=== PATIENT | male | born 1970 | race Caucasian/White ===

== ENCOUNTER 2017-11-30 11:38 | Inpatient (IN) | payer OTHER ==
[~2017-11-30] VITALS: Ht 193 cm; Wt 145.1 kg
[~2017-11-30 11:38] MED LIST: BENAZEPRIL PO; CARVEDILOL PO; HUMALOG SQ; LANTUS SQ; LIPITOR PO; aspirin PO; prozac PO
[2017-11-30] MEDS ORDERED: ACETAMINOPHEN 325 MG TAB PO STA (12:09)
[2017-11-30 12:21] LABS: BASOPHILS # (AUTO) 0.1 (0.0-0.1); BASOPHILS % 0.6 % (0.0-1.0); EOSINOPHILS # (AUTO) 0.1 (0.0-0.4); EOSINOPHILS % 0.8 % (0.0-6.0); HEMATOCRIT 41.9 % (38.2-49.6); HEMOGLOBIN 14.5 g/dL (14.0-18.0); LYMPHOCYTES # (AUTO) 0.8 (1.0-3.2); LYMPHOCYTES % 6.3 % (18.0-39.1); MEAN CORPUSCULAR HEMOGLOBIN 30.9 pg (28-32); MEAN CORPUSCULAR HGB CONC 34.6 g/dL (31-35); MEAN CORPUSCULAR VOLUME 89.1 fL (81-99); MONOCYTES # (AUTO) 0.9 (0.2-0.8); MONOCYTES % 6.7 % (4.4-11.3); NEUTROPHILS # (AUTO) 11.2 (2.1-6.9); NEUTROPHILS % 85.1 % (38.7-80.0); PLATELET COUNT 218 x10e3/uL (140-360); RED CELL DISTRIBUTION WIDTH 12.1 % (11.7-14.4)
[2017-11-30] MEDS ORDERED: HYDROMORPHONE 2MG/ML INJ IV ONE (12:30)
[2017-11-30] MEDS ORDERED: VANCOMYCIN 1GM/NS 250 ML 250 ML IV STA (12:30)
[2017-11-30] MEDS ORDERED: METOCLOPRAMIDE HCL 10 MG/2ML VIAL IV ONE (12:30)
[2017-11-30] MEDS ORDERED: SODIUM CHLORIDE 0.9% 1000ML 1,000 ML IV STA (12:30)
[2017-11-30] MEDS ORDERED: KETOROLAC TROMETHAMINE 30 MG/ML VIAL IM STA (12:30)
[2017-11-30 12:45] LABS: ALANINE AMINOTRANSFERASE 76 IU/L (0-55); ALBUMIN 4.4 g/dL (3.5-5.0); ALBUMIN/GLOBULIN RATIO 1.5 (0.8-2.0); ALKALINE PHOSPHATASE 63 IU/L (40-150); ANION GAP 13.9 mmol/L (8-16); BLOOD UREA NITROGEN 14 mg/dL (7-26); BUN/CREATININE RATIO 15 (6-25); CALCIUM 9.5 mg/dL (8.4-10.2); CARBON DIOXIDE 28 mmol/L (22-29); CHLORIDE 98 mmol/L (98-107); CREATININE, SERUM 0.95 mg/dL (0.72-1.25); EST GLOMERULAR FILTRATION RATE > 60 ML/MIN (60-); GLUCOSE 156 mg/dL (74-118); POTASSIUM 3.9 mmol/L (3.5-5.1); SODIUM 136 mmol/L (136-145)
[2017-11-30 13:03] LABS: INR 0.99; PROTHROMBIN TIME 12.3 seconds (11.9-14.5)
[2017-11-30 13:04] LABS: PARTIAL THROMBOPLASTIN TIME 27.8 seconds (23.8-35.5)
[2017-11-30] MEDS ORDERED: CLINDAMYCIN 600MG/D5W 50ML 50 ML IV SCH ×2 (13:45)
[2017-11-30] MEDS ORDERED: MORPHINE SULFATE 2 MG/ML SYR IV ONE (14:00)
--- NOTE | 2017-11-30 14:05 | Diagnostic Imaging Report ---
PROCEDURE: CHEST SINGLE (PORTABLE) COMPARISON: None. INDICATIONS: LEG INFECTION, CXR FOR ADMISSION FINDINGS: Limited examination secondary to patient body habitus. Lungs are well-expanded and without gross consolidation, pleural effusion, or pneumothorax. Cardiomediastinal contour and pulmonary vasculature are within normal limits for portable, AP technique. No acute osseous abnormality. CONCLUSION: No acute cardiopulmonary abnormality. Dictated by: Titus Barth M.D. on 11/30/2017 at 14:08 Electronically approved by: Titus Barth M.D. on 11/30/2017 at 14:08
[2017-11-30] MEDS ORDERED: HYDROMORPHONE 2MG/ML INJ IV PRN (15:30)
[2017-11-30] MEDS ORDERED: HYDROMORPHONE 1MG/1ML INJ IV PRN (15:30)
[2017-11-30] MEDS ORDERED: ONDANSETRON HCL INJ 2 MG/ML VIAL IV PRN (15:30)
--- OUTSIDE RECORDS SUMMARY | 2017-11-30 16:03 | XMS REPORT ---
Author Author [facility] Address Unknown Phone Unavailable Care Team Providers Care Clerical Secretary Name Role Phone MEG TARANGO Unavailable Unavailable Problems This patient has no known problems. Allergies, Adverse Reactions, Alerts This patient has no known allergies or adverse reactions. Medications This patient has no known medications. Results Test Description Test Time Test Comments Text Results Atomic Results Result Comments CHEST SINGLE (PORTABLE) [place] [id number] Patient Name: ESTHELA ESTEVEZ MR #: [id number] : 1970 Age/Sex: 47/M Req #: [id number] Adm Physician: Ordered by: MEG TARANGO MD Report #: [id number] Location: ER Room/Bed: Procedure: [id number] DX/CHEST SINGLE (PORTABLE) Exam Date: 11/30/17 Exam Time: 1310 REPORT STATUS: Signed PROCEDURE: CHEST SINGLE (PORTABLE) COMPARISON: None. INDICATIONS: LEG INFECTION, CXR FOR ADMISSION FINDINGS: Limited examination secondary to patient body habitus. Lungs are well-expanded and without gross consolidation, pleural effusion, or pneumothorax. Cardiomediastinal contour and pulmonary vasculature are within normal limits for portable, AP technique. No acute osseous abnormality. CONCLUSION: No acute cardiopulmonary abnormality. Dictated by: Margaux Barth M.D. on 11/30/2017 at 14:08 Electronically approved by: Margaux Barth M.D. on 11/30/2017 at 14:08 Dictated By: MARGAUX BARTH MD [id number] Transcribed By: CIERRA on 11/30/17 1408 COPY TO: MEG TARANGO MD
[2017-11-30] MEDS: LEVOFLOXACIN 750MG/D5W 150ML 150 ML IV SCH (16:21)
[2017-11-30] MEDS: SODIUM CHLORIDE 0.9% 1000ML 1,000 ML IV SCH ×2 (16:21→22:55)
[2017-11-30] MEDS ORDERED: ACETAMINOPHEN 325 MG TAB PO PRN (17:00)
[2017-11-30] MEDS ORDERED: HYDRALAZINE HCL 20 MG/ML VIAL IV PRN (17:00)
[2017-11-30] MEDS ORDERED: HYDROCODONE/APAP 5MG-325MG TAB PO PRN (17:00)
[2017-11-30] MEDS ORDERED: CARVEDILOL3.125 MG PO (17:27)
[2017-11-30] MEDS ORDERED: FLUOXETINE HCL20 M1 PO (17:30)
[2017-11-30] MEDS: ENOXAPARIN SOD INJ 40 MG/0.4 ML SYR SC SCH (17:48)
[2017-11-30 17:50] VITALS: BP 120/70
[2017-11-30 18:00] VITALS: BP 120/70
[2017-11-30 20:00] VITALS: BP 146/72
[2017-11-30] MEDS: VANCOMYCIN 1GM/NS 250 ML 250 ML IV SCH (20:08)
[2017-11-30] MEDS: CLINDAMYCIN 600MG/D5W 50ML 50 ML IV SCH (22:38)
[2017-12-01] VITALS (8 sets, daily range): BP systolic 140–161; BP diastolic 63–82
[2017-12-01] MEDS: SODIUM CHLORIDE 0.9% 1000ML 1,000 ML IV SCH (04:21)
[2017-12-01] MEDS: CLINDAMYCIN 600MG/D5W 50ML 50 ML IV SCH ×3 (05:25→14:46)
[2017-12-01] MEDS ORDERED: CARVEDILOL12.5 MG PO (07:36)
[2017-12-01] MEDS ORDERED: BENAZEPRIL HCL10 MG PO (07:37)
[2017-12-01] MEDS ORDERED: LEVEMIR100 UNIT/1 (07:38)
[2017-12-01] MEDS ORDERED: NOVOLOG100 UNIT/1 (07:44)
[2017-12-01 08:03] LABS: BASOPHILS % 0.5 % (0.0-1.0); EOSINOPHILS % 0.1 % (0.0-6.0); HEMATOCRIT 37.6 % (38.2-49.6); HEMOGLOBIN 12.6 g/dL (14.0-18.0); LYMPHOCYTES # (AUTO) 1.1 (1.0-3.2); LYMPHOCYTES % 12.9 % (18.0-39.1); MEAN CORPUSCULAR HEMOGLOBIN 30.1 pg (28-32); MEAN CORPUSCULAR HGB CONC 33.5 g/dL (31-35); MEAN CORPUSCULAR VOLUME 89.7 fL (81-99); MONOCYTES # (AUTO) 0.7 (0.2-0.8); MONOCYTES % 8.2 % (4.4-11.3); NEUTROPHILS # (AUTO) 6.9 (2.1-6.9); NEUTROPHILS % 77.8 % (38.7-80.0); PLATELET COUNT 166 x10e3/uL (140-360); RED BLOOD COUNT 4.19 x10e6/uL (4.3-5.7); RED CELL DISTRIBUTION WIDTH 12.1 % (11.7-14.4)
[2017-12-01] MEDS ORDERED: LEVEMIR100 UNIT/1 SUBD ×2 (08:04→08:07)
[2017-12-01] MEDS: VANCOMYCIN 1GM/NS 250 ML 250 ML IV SCH ×2 (08:10→21:51)
[2017-12-01] MEDS: FAMOTIDINE 20 MG TAB PO SCH ×2 (08:10→16:27)
[2017-12-01 08:34] LABS: ALANINE AMINOTRANSFERASE 89 IU/L (0-55); ALBUMIN 3.3 g/dL (3.5-5.0); ALBUMIN/GLOBULIN RATIO 1.2 (0.8-2.0); ALKALINE PHOSPHATASE 53 IU/L (40-150); ANION GAP 11.8 mmol/L (8-16); BLOOD UREA NITROGEN 14 mg/dL (7-26); BUN/CREATININE RATIO 15 (6-25); CALCIUM 8.3 mg/dL (8.4-10.2); CARBON DIOXIDE 27 mmol/L (22-29); CHLORIDE 100 mmol/L (98-107); CREATININE, SERUM 0.94 mg/dL (0.72-1.25); EST GLOMERULAR FILTRATION RATE > 60 ML/MIN (60-); GLUCOSE 253 mg/dL (74-118); MAGNESIUM 1.5 MG/DL (1.3-2.1); POTASSIUM 3.8 mmol/L (3.5-5.1); SODIUM 135 mmol/L (136-145)
[2017-12-01 08:37] LABS: B-TYPE NATRIURETIC PEPTIDE2 148.3 pg/mL (0-100)
[2017-12-01 08:57] LABS: THYROID STIMULATING HORMONE 0.678 uIU/mL (0.350-4.940)
[2017-12-01] MEDS ORDERED: DEXTROSE 50% SYRINGE 50 ML IV PRN (12:15)
[2017-12-01] MEDS: LEVOFLOXACIN 750MG/D5W 150ML 150 ML IV SCH (16:27)
[2017-12-01] MEDS: ENOXAPARIN SOD INJ 40 MG/0.4 ML SYR SC SCH (16:27)
[2017-12-01] MEDS: INSULIN REGULAR, HUMAN 100 UNIT/1 ML 3ML VIAL SQ SCH ×2 (16:42→21:40)
[2017-12-01] MEDS: INSULIN DETEMIR 100 UNIT/ML PEN SQ SCH (16:42)
[2017-12-01] MEDS ORDERED: INSULIN REGULAR, HUMAN 100 UNIT/1 ML 3ML VIAL SQ NR (17:00)
[2017-12-01] MEDS ORDERED: SODIUM CHLORIDE 0.9% 250ML 250 ML ONE (21:46)
[2017-12-02] VITALS (8 sets, daily range): BP systolic 112–154; BP diastolic 57–75
[2017-12-02] MEDS: CLINDAMYCIN 600MG/D5W 50ML 50 ML IV SCH ×3 (04:54→22:28)
[2017-12-02 07:26] LABS: BASOPHILS # (AUTO) 0.1 (0.0-0.1); BASOPHILS % 1.3 % (0.0-1.0); EOSINOPHILS # (AUTO) 0.1 (0.0-0.4); EOSINOPHILS % 2.6 % (0.0-6.0); HEMATOCRIT 38.1 % (38.2-49.6); HEMOGLOBIN 13.1 g/dL (14.0-18.0); LYMPHOCYTES # (AUTO) 1.2 (1.0-3.2); LYMPHOCYTES % 22.9 % (18.0-39.1); MEAN CORPUSCULAR HEMOGLOBIN 30.6 pg (28-32); MEAN CORPUSCULAR HGB CONC 34.4 g/dL (31-35); MONOCYTES # (AUTO) 0.9 (0.2-0.8); MONOCYTES % 15.7 % (4.4-11.3); NEUTROPHILS # (AUTO) 3.1 (2.1-6.9); NEUTROPHILS % 56.9 % (38.7-80.0); PLATELET COUNT 160 x10e3/uL (140-360); RED BLOOD COUNT 4.28 x10e6/uL (4.3-5.7); RED CELL DISTRIBUTION WIDTH 12.2 % (11.7-14.4)
[2017-12-02 07:51] LABS: ANION GAP 12.6 mmol/L (8-16); BLOOD UREA NITROGEN 12 mg/dL (7-26); BUN/CREATININE RATIO 14 (6-25); CALCIUM 9.2 mg/dL (8.4-10.2); CARBON DIOXIDE 28 mmol/L (22-29); CHLORIDE 104 mmol/L (98-107); CREATININE, SERUM 0.84 mg/dL (0.72-1.25); EST GLOMERULAR FILTRATION RATE > 60 ML/MIN (60-); GLUCOSE 79 mg/dL (74-118); POTASSIUM 3.6 mmol/L (3.5-5.1); SODIUM 141 mmol/L (136-145)
[2017-12-02 07:57] LABS: CHOL/HDL RATIO 5.6 (3.9-4.7)
[2017-12-02] MEDS: VANCOMYCIN 1GM/NS 250 ML 250 ML IV SCH ×2 (08:01→20:38)
[2017-12-02] MEDS: FAMOTIDINE 20 MG TAB PO SCH ×2 (08:01→16:49)
[2017-12-02] MEDS: INSULIN DETEMIR 100 UNIT/ML PEN SQ SCH ×2 (08:06→22:30)
[2017-12-02 08:07] LABS: ALBUMIN 3.5 g/dL (3.5-5.0); BILIRUBIN,DIRECT 0.3 mg/dL (0.0-0.5)
[2017-12-02] MEDS: INSULIN LISPRO 100 UNIT/1 ML 3ML VIAL SQ SCH ×3 (12:36→21:00)
[2017-12-02] MEDS: ENOXAPARIN SOD INJ 40 MG/0.4 ML SYR SC SCH (16:49)
[2017-12-02] MEDS: LEVOFLOXACIN 750MG/D5W 150ML 150 ML IV SCH (16:49)
[2017-12-03] VITALS: BP 144/83
[2017-12-03 03:58] LABS: EOSINOPHILS # (AUTO) 0.2 (0.0-0.4); HEMATOCRIT 35.8 % (38.2-49.6); HEMOGLOBIN 12.4 g/dL (14.0-18.0); LYMPHOCYTES # (AUTO) 1.1 (1.0-3.2); LYMPHOCYTES % 26.3 % (18.0-39.1); MEAN CORPUSCULAR HEMOGLOBIN 30.8 pg (28-32); MEAN CORPUSCULAR HGB CONC 34.6 g/dL (31-35); MEAN CORPUSCULAR VOLUME 89.1 fL (81-99); MONOCYTES # (AUTO) 0.6 (0.2-0.8); MONOCYTES % 14.5 % (4.4-11.3); NEUTROPHILS # (AUTO) 2.2 (2.1-6.9); NEUTROPHILS % 53.7 % (38.7-80.0); PLATELET COUNT 159 x10e3/uL (140-360); RED BLOOD COUNT 4.02 x10e6/uL (4.3-5.7)
[2017-12-03 04:00] VITALS: BP 112/93
[2017-12-03 04:21] LABS: ANION GAP 14.4 mmol/L (8-16); BLOOD UREA NITROGEN 11 mg/dL (7-26); BUN/CREATININE RATIO 14 (6-25); CARBON DIOXIDE 26 mmol/L (22-29); CHLORIDE 106 mmol/L (98-107); CREATININE, SERUM 0.77 mg/dL (0.72-1.25); EST GLOMERULAR FILTRATION RATE > 60 ML/MIN (60-); GLUCOSE 90 mg/dL (74-118); MAGNESIUM 1.8 MG/DL (1.3-2.1); POTASSIUM 3.4 mmol/L (3.5-5.1); SODIUM 143 mmol/L (136-145)
[2017-12-03] MEDS: CLINDAMYCIN 600MG/D5W 50ML 50 ML IV SCH (06:12)
[2017-12-03] MEDS: INSULIN LISPRO 100 UNIT/1 ML 3ML VIAL SQ SCH (07:30)
[2017-12-03 07:35] VITALS: BP 152/79
[2017-12-03 08:00] VITALS: BP 152/79
[2017-12-03] MEDS: FAMOTIDINE 20 MG TAB PO SCH (08:00)
[2017-12-03] MEDS: INSULIN DETEMIR 100 UNIT/ML PEN SQ SCH (09:00)
[2017-12-03] MEDS: VANCOMYCIN 1GM/NS 250 ML 250 ML IV SCH (09:00)
--- NOTE | 2017-12-03 09:10 | Diagnostic Imaging Report ---
PROCEDURE:ABDOMINAL ULTRASOUND COMPARISON:None. INDICATION:Elevated LFTs TECHNIQUE:Pinzon scale and color Doppler ultrasound FINDINGS: The inferior vena cava is patent. The abdominal aorta and pancreas are obscured by bowel gas and body habitus. Right liver span 22 cm. Diffusely increased liver echogenicity with underlying heterogeneity. Smooth margin. Portal vein diameter 1.2 cm; normal flow direction. Gallbladder sludge. Wall thickness 0.3 cm. Inconspicuous common bile duct. Right kidney: 12.2 cm span Left kidney: 12.9 cm span both kidneys are normal. Spleen length 14.6 cm. No ascites. CONCLUSION: 1. Hepatomegaly with steatosis. 2. Splenomegaly consistent with portal hypertension. 3. Gallbladder sludge without evidence of stone or cholecystitis. 4. The study is significantly limited by body habitus. Evaluation of the liver for underlying nodules is markedly limited by severe steatosis. Dictated by: Davis Hsu M.D. on 12/03/2017 at 9:13 Electronically approved by: Davis Hsu M.D. on 12/03/2017 at 9:13
[2017-12-03] MEDS ORDERED: CIPROFLOXACIN500 MG PO (09:13)
[2017-12-03] MEDS ORDERED: BACTRIM DS TAB1 EACH PO (09:13)
[2017-12-03] MEDS ORDERED: POTASSIUM CHLORIDE 20 MEQ TAB CR PO STA (09:14)
--- NOTE | 2017-12-03 15:53 | Discharge Summary ---
ADMISSION DIAGNOSES 1. Right lower extremity cellulitis. 2. Hypertension. 3. Type 1 diabetes. 4. Hyperlipidemia. 5. Anxiety. 6. Obese. 7. Elevated liver function tests. DISCHARGE DIAGNOSES 1. Right lower extremity cellulitis. 2. Hypertension. 3. Type 1 diabetes. 4. Hyperlipidemia. 5. Anxiety. 6. Obese. 7. Elevated liver function tests. 8. Ruled out deep vein thrombosis in right lower extremity. 9. Correct hypokalemia and anemia. HISTORY: Patient has a history of hypertension, hyperlipidemia, anxiety and type 1 diabetes. Surgical history of right knee arthroscopy and meniscectomy and appendectomy. HOSPITAL COURSE: A 47-year-old male was at [facility] last Sunday when a wooden table scraped his leg. He did not notice any pain or redness until the following Sunday. He denied fever and drainage. Movement makes the pain worse, and pain meds improve the pain. On admission patient was started on IV antibiotics. A venous Doppler was done, which was negative. Home medicines were resumed for hypertension and diabetes as well as hyperlipidemia, anxiety. For obesity we checked A1c and a lipid panel. The lipids were within normal limits. Blood culture was negative. EKG showed sinus tachycardia. After 2 days of IV antibiotics, the cellulitis is much improved. The pain is gone. The redness is gone as well. Patient will discharge home with 7 more days of IV antibiotics and resume home medicines for his other comorbidities. He will follow up with primary care in 2 weeks, is excited and ready to go home. Dictated by: Ami Mahajan NP BARBIE JANG MD Job#: [id number]
== END 2017-12-03 10:37 | disposition home or self-care (01) | DRG 872 ==
LOC: ER 11:38 → ERHOLD 16:02 → MED/SURG3 16:04
PROVIDERS: ADMIT Internal Medicine; ATTEND Internal Medicine
DX: A41.9 Sepsis, unspecified organism (principal); L03.115 Cellulitis of right lower limb; E78.5 Hyperlipidemia, unspecified; I10 Essential (primary) hypertension; F41.9 Anxiety disorder, unspecified; E66.9 Obesity, unspecified; Z68.39 Body mass index [BMI] 39.0-39.9, adult; R94.5 Abnormal results of liver function studies; E87.6 Hypokalemia; E10.9 Type 1 diabetes mellitus without complications; Z79.4 Long term (current) use of insulin; Z88.0 Allergy status to penicillin
CPT/HCPCS: 36415; 71045; 76700; 80048; 80053; 80061; 80076; 80202; 82140; 82948; 83036; 83605; 83735; 83880; 84439; 84443; 85025; 85610; 85730; 87040; 93005; 93971; 96361; 99284; J1650; J1885; J2270; J2765; J3370; J7030; J7050